=== PATIENT | female | born 1950 | race Caucasian/White ===

== ENCOUNTER → 2017-02-13 | Outpatient (CLI) | payer MEDICARE, OTHER ==
[~2017-02-13] VITALS: Ht 165.1 cm; Wt 54.9 kg
[~2017-02-13] MED LIST: NS FLUSH 10 ML PRN IV; NS FLUSH 3 ML PRN IV; ZOLEDRONIC ACID 5 MG/100 ML 100 ML IV ONE
[2017-02-13 10:12] VITALS: BP 102/60
== END ==
LOC: EUOP 09:49
PROVIDERS: ATTEND Internal Medicine
DX: M81.0 Age-related osteoporosis without current pathological fracture (principal)
CPT/HCPCS: 36000; J3489; 96365